=== PATIENT | male | born 1965 | race Caucasian/White ===

== ENCOUNTER → 2019-12-14 05:55 | Day surgery (SDC) | payer BC ==
--- NOTE | 2019-12-11 11:30 | HP ---
CC: Dr. Ledy Hernandez; Dr. Alfonso * ADMITTING HISTORY AND PHYSICAL: DATE OF ADMISSION: 12/14/19 ADMITTING DIAGNOSIS: Left renal calculus. PLANNED PROCEDURE: Shockwave lithotripsy, left renal calculus. SURGEON: Dr. Alfonso. HISTORY OF PRESENT ILLNESS: Christian Kilpatrick is a 54-year-old gentleman who has recently been seen in followup and was noted to have a 5 to 6 mm calculus in the left kidney. He desires treatment of the same and is now being brought in for shockwave lithotripsy after thorough discussion of the procedure and possible complications including bleeding, infection, incomplete fragmentation, etc. PAST MEDICAL HISTORY: Significant for topical psoriasis. PAST SURGICAL HISTORY: Negative. MEDICATIONS ON ADMISSION: Calcitriol cream. ALLERGIES: No known drug allergies. FAMILY HISTORY: Negative for stones. SOCIAL HISTORY: Smoking history, he is a nonsmoker. REVIEW OF SYSTEMS: He is in excellent health. There is no history of diabetes mellitus or any other major systemic illness. PHYSICAL EXAMINATION GENERAL: Reveals a pleasant, middle-aged gentleman. VITAL SIGNS: Blood pressure 112/70; pulse 64 per minute, regular; oxygen saturation 98% on room air, temperature 96.4. LUNGS: Clear bilaterally. CARDIOVASCULAR: Regular rate and rhythm. S1 and S2. ABDOMEN: Soft without masses. RECTAL: Reveals a mildly enlarged prostate without nodularity or asymmetry. IMPRESSION: A 54-year-old gentleman with left renal calculus, who is being brought in for shockwave lithotripsy. PLAN: Shockwave lithotripsy, left renal calculus. [id number]/[facility] #: [id number] [facility]
[~2019-12-14 05:55] MED LIST: Buffered Lidocaine 1% SYRIN* 1 ML/SYRINGE INTRADERM ONE; Furosemide IV* 10 MG/ML 2 ML VIAL (20 MG) ONE; HYDROmorphone INJ1* 1 MG/ML SYRINGE IV PRN; Lactated Ringers 1000 ML Bag* 1,000 ML IV SCH; Lidocaine 2% PF * 5 ML VIAL ONE; Midazolam* 1 MG/ML 2 ML VIAL (2 MG) ONE; Naloxone* 0.4 MG/ML 1 ML VIAL IV PRN; PROCHLORPERAZINE INJ 5 MG/ML 2 ML VIAL IV PRN; Propofol* 10 MG/ML 20 ML BTL ONE; cefTRIAXone(*) 2 GM ADDV.VIAL IVPB ONE; fentaNYL* 50 MCG/ML 2 ML VIAL (100 MCG VIAL) ONE
[2019-12-14 09:55] VITALS: BP 123/62
--- NOTE | 2019-12-14 22:28 | OP ---
CC: Dr. Hernandez * DATE OF OPERATION: 12/14/19 - [facility] DATE OF : 67 SURGEON: Dr. Alfonso. ANESTHESIOLOGIST: Dr. Moore. ANESTHESIA: General. PRE-OP DIAGNOSIS: Left renal calculus. POST-OP DIAGNOSIS: Left renal calculus. OPERATIVE PROCEDURE: Shock wave lithotripsy, left renal calculus. COMPLICATIONS: None. POSTOPERATIVE CONDITION: Stable. INDICATIONS: Christian Kilpatrick is a 54-year-old gentleman who was evaluated and noted to have an approximately 6-mm calculus in the lower pole of the left kidney. He desires treatment of the same and is now being brought in for shock wave lithotripsy. DESCRIPTION OF PROCEDURE: After induction of general anesthesia (before placing the patient under general anesthesia, fluoroscopy was done to confirm the location of the calculus as it could not be visualized on the preoperative KUB), the patient was placed on the lithotripsy table in supine position. The calculus in the mid to lower pole was identified on fluoroscopy and shock wave lithotripsy was commenced at a rate of 60 shocks per minute. After the initial 300 shocks, there was a pause in lithotripsy for several minutes in an effort to minimize any potential trauma to the kidney. Lithotripsy was then resumed and a total of 850 shocks were administered with good fragmentation observed. The patient tolerated the procedure satisfactorily and was transferred back to the recovery area in stable condition. [id number]/[facility] #: [id number] MTDD
== END | disposition home or self-care (01) ==
LOC: OR 05:55
PROVIDERS: ATTEND Urology
DX: N20.0 Calculus of kidney (principal); L40.9 Psoriasis, unspecified
CPT/HCPCS: 74018; J0696; J1940; J2250; J2704; J3010